=== PATIENT | female | born 1995 | race Caucasian/White ===

== ENCOUNTER 2021-12-21 06:11 | Emergency (ER) | payer BC ==
[2021-12-21] MEDS ORDERED: Ondansetron 4 MG/2 ML SDV IVPUSH ONE (06:35)
[2021-12-21] MEDS ORDERED: Morphine 4 MG/ML VIAL IVPUSH ONE (06:35)
[2021-12-21] MEDS ORDERED: Sodium Chloride 0.9% 1,000 ML IV SCH (06:45)
[2021-12-21 07:07] LABS: BLOOD UREA NITROGEN,BUN 16 mg/dL (7.0-18.0); CARBON DIOXIDE,CO2 26.8 mmol/L (21.0-32.0); CHLORIDE,CL 103 mmol/L (98-107); ESTIMATED GFR > 60.0 ml/min; GLUCOSE RANDOM 80 mg/dL (74-106); LIPASE 109 U/L (73-393); POTASSIUM,K 3.8 mmol/L (3.5-5.1); SODIUM,NA 141 mmol/L (136-145)
== END 2021-12-21 09:13 | disposition home or self-care (01) ==
LOC: MW.ED 06:11
DX: K80.20 Calculus of gallbladder without cholecystitis without obstruction (principal)
CPT/HCPCS: 36415; 71045; 76705; 80053; 81003; 83690; 84703; 85025; 85379; 96374; 96375; 99284; J2270; J2405; J7030

== ENCOUNTER 2021-12-31 03:25 | Inpatient (IN) | payer BC ==
[2021-12-31] MEDS ORDERED: Ondansetron 4 MG/2 ML SDV IVPUSH ONE (03:40)
[2021-12-31] MEDS ORDERED: Sodium Chloride 0.9% 1,000 ML IV STA (03:43)
[2021-12-31] MEDS ORDERED: Morphine 4 MG/ML VIAL IVPUSH ONE (03:43)
[2021-12-31 04:17] LABS: BLOOD UREA NITROGEN,BUN 17 mg/dL (7.0-18.0); CARBON DIOXIDE,CO2 27.8 mmol/L (21.0-32.0); CHLORIDE,CL 103 mmol/L (98-107); GLUCOSE RANDOM 97 mg/dL (74-106); LIPASE 106 U/L (73-393); POTASSIUM,K 3.8 mmol/L (3.5-5.1); SODIUM,NA 137 mmol/L (136-145)
[2021-12-31] MEDS ORDERED: Ondansetron 4 MG/2 ML SDV IVPUSH PRN (05:08)
[2021-12-31] MEDS ORDERED: Morphine 2 MG/ML SYRINGE IVPUSH PRN (05:09)
[2021-12-31] MEDS ORDERED: Lactated Ringers 1,000 ML IV STA (05:12)
[2021-12-31] MEDS: Acetaminophen 325 MG Tab PO PRN ×2 (18:22→21:08)
[2021-12-31] MEDS ORDERED: Lactated Ringers 1,000 ML IV SCH (20:15)
[2022-01-01] MEDS ORDERED: cefOXitin 2 GM in Premix Bag 1 BAG IV ONE (10:00)
[2022-01-01] MEDS ORDERED: Ondansetron 4 MG/2 ML SDV IVPUSH PRN ×3 (10:29→15:21)
[2022-01-01] MEDS ORDERED: Albuterol 0.083% 2.5 MG/3 ML Neb Soln NEB PRN (10:29)
[2022-01-01] MEDS ORDERED: Naloxone 0.4 MG/ML SDV IVPUSH PRN ×2 (10:29→15:21)
[2022-01-01] MEDS ORDERED: HYDROmorphone 1 MG/ML Syringe IVPUSH PRN (10:29)
[2022-01-01] MEDS ORDERED: fentaNYL 100 MCG/2 ML SDV IVPUSH PRN (10:29)
[2022-01-01] MEDS ORDERED: Metoclopramide 10 MG/2 ML SDV IVPUSH PRN (10:29)
[2022-01-01] MEDS ORDERED: fentaNYL 250 MCG/5 ML SDV ONE ×2 (11:35→12:51)
[2022-01-01] MEDS ORDERED: Propofol 200 MG/20 ML SDV ONE (11:35)
[2022-01-01] MEDS ORDERED: Bupivacaine 0.5% 30 ML SDV ONE ×2 (11:47→13:52)
[2022-01-01] MEDS ORDERED: ceFAZolin 1 GM Vial ONE (11:47)
[2022-01-01] MEDS ORDERED: Famotidine 20 MG/2 ML SDV ONE (13:00)
[2022-01-01] MEDS ORDERED: Rocuronium Bromide 50 MG/5 ML Syringe ONE ×2 (13:56→18:11)
[2022-01-01] MEDS ORDERED: Bupivacaine 0.5% 10 ML SDV ONE (14:10)
[2022-01-01] MEDS ORDERED: Albumin 5% 250 ML ONE ×2 (14:12→15:24)
[2022-01-01] MEDS ORDERED: Calcium Chloride 10% 1 GM/10 ML Syringe ONE ×2 (14:12→15:13)
[2022-01-01] MEDS ORDERED: Phenylephrine 1% 10 MG/ML SDV ONE ×3 (15:13→18:11)
[2022-01-01] MEDS ORDERED: HYDROmorphone/Normal Saline 10 MG/50 ML PCA IV PRN (15:18)
[2022-01-01] MEDS ORDERED: diphenhydrAMINE 50 MG/ML SDV IVPUSH PRN (15:21)
[2022-01-01] MEDS ORDERED: diphenhydrAMINE 25 MG Cap PO PRN (15:21)
[2022-01-01] MEDS ORDERED: Vasopressin 20 Units/1 ML MDV ONE ×3 (15:25→18:11)
[2022-01-01] MEDS ORDERED: Lactated Ringers 1,000 ML IV SCH (15:30)
[2022-01-01] MEDS ORDERED: cefOXitin 1 GM in Premix Bag 1 BAG IV SCH (15:30)
[2022-01-01 16:29] LABS: BLOOD UREA NITROGEN,BUN 9 mg/dL (7.0-18.0); CARBON DIOXIDE,CO2 13.7 mmol/L (21.0-32.0); CHLORIDE,CL 111 mmol/L (98-107); GLUCOSE RANDOM 281 mg/dL (74-106); POTASSIUM,K 4.2 mmol/L (3.5-5.1); SODIUM,NA 139 mmol/L (136-145)
[2022-01-01] MEDS ORDERED: Vasopressin 20 Units/1 ML MDV IV ONE (16:45)
[2022-01-01] MEDS ORDERED: Piperacillin/Tazobactam 4.5 GM in Sodium Chloride 0.9% 100 ML IV ONE (17:08)
[2022-01-01] MEDS ORDERED: Calcium Gluconate 10% 1 GM/10 ML SDV ONE (17:43)
[2022-01-01] MEDS ORDERED: Sugammadex Sodium 200 MG/2 ML VIAL ONE (18:11)
[2022-01-01] MEDS ORDERED: ePHEDrine 50 MG/ML SDV ONE (18:11)
[2022-01-01] MEDS ORDERED: Ondansetron 4 MG/2 ML SDV ONE (18:11)
== END 2022-01-01 18:29 | DRG 263 ==
LOC: MW.ED 03:25 → MW.MS 05:07 → OBSVTOIN 15:16
PROVIDERS: ADMIT Surgery; ATTEND Surgery
PROC: 0FT40ZZ Resection of Gallbladder, Open Approach (ICD-10-PCS; principal; 2022-01-01)
PROC: 0FJ44ZZ Inspection of Gallbladder, Percutaneous Endoscopic Approach (ICD-10-PCS; 2022-01-01)
PROC: 30233N1 Transfusion of Nonautologous Red Blood Cells into Peripheral Vein, Percutaneous Approach (ICD-10-PCS; 2022-01-01)
PROC: 30233K1 Transfusion of Nonautologous Frozen Plasma into Peripheral Vein, Percutaneous Approach (ICD-10-PCS; 2022-01-01)
PROC: 02HV33Z Insertion of Infusion Device into Superior Vena Cava, Percutaneous Approach (ICD-10-PCS; 2022-01-01)
DX: K80.10 Calculus of gallbladder with chronic cholecystitis without obstruction (principal); I97.418 Intraoperative hemorrhage and hematoma of a circulatory system organ or structure complicating other circulatory system procedure; Z20.822 Contact with and (suspected) exposure to COVID-19; K21.9 Gastro-esophageal reflux disease without esophagitis; F41.9 Anxiety disorder, unspecified; F32.A Depression, unspecified; F43.10 Post-traumatic stress disorder, unspecified
CPT/HCPCS: 36415; 36430; 71045; 71045-26; 80053; 81003; 83605; 83690; 84484; 84703; 85014; 85018; 85025; 85027; 85610; 85730; 86850; 86900; 86901; 86920; 86921; 86922; 93005; 96374; 96375; 96376; 99285-25; A9270-GY; G0378; J0610; J0690; J2270; J2370; J2405; J2543; J2704; J3010; J3490; J7030; J7120; P9016; P9017; P9045; U0002

== ENCOUNTER 2022-01-11 00:47 | Emergency (ER) | payer BC | END 2022-01-11 01:36 | disposition home or self-care (01) | LOC: MW.ED 00:47 | DX: I80.8 Phlebitis and thrombophlebitis of other sites (principal); K21.9 Gastro-esophageal reflux disease without esophagitis; E66.9 Obesity, unspecified; Z68.41 Body mass index [BMI] 40.0-44.9, adult | CPT/HCPCS: 99282; 99283 ==

== ENCOUNTER 2022-01-19 21:47 | Emergency (ER) | payer BC ==
[2022-01-19] MEDS ORDERED: Ondansetron 4 MG/2 ML SDV IVPUSH ONE (22:34)
[2022-01-19] MEDS ORDERED: Sodium Chloride 0.9% 1,000 ML IV ONE (22:34)
[2022-01-19] MEDS ORDERED: Morphine 4 MG/ML VIAL IVPUSH ONE (22:34)
[2022-01-19] MEDS ORDERED: Sodium Chloride 0.9% 2.5 ML Syringe FLUSH PRN (22:34)
[2022-01-19] MEDS ORDERED: Sodium Chloride 0.9% 10 ML Syringe FLUSH PRN (22:34)
[2022-01-19 23:58] LABS: BLOOD UREA NITROGEN,BUN 12 mg/dL (7.0-18.0); CARBON DIOXIDE,CO2 28.6 mmol/L (21.0-32.0); CHLORIDE,CL 101 mmol/L (98-107); GLUCOSE RANDOM 81 mg/dL (74-106); LIPASE 634 U/L (73-393); POTASSIUM,K 3.7 mmol/L (3.5-5.1); SODIUM,NA 139 mmol/L (136-145)
[2022-01-20] MEDS ORDERED: Iopamidol 755 MG/ML 500 ML Multipack Bottle IVPUSH STA (02:54)
[2022-01-20] MEDS ORDERED: Piperacillin/Tazobactam 3.375 GM in Sodium Chloride 0.9% 50 ML IV ONE ×2 (03:25→09:39)
[2022-01-20] MEDS ORDERED: Morphine 4 MG/ML VIAL IVPUSH STA (05:58)
[2022-01-20] MEDS ORDERED: Morphine 4 MG/ML VIAL IVPUSH ONE (09:42)
== END 2022-01-20 10:10 | disposition other institution (70) ==
LOC: MW.ED 21:47
DX: L02.211 Cutaneous abscess of abdominal wall (principal); E66.9 Obesity, unspecified; Z68.39 Body mass index [BMI] 39.0-39.9, adult; Z79.899 Other long term (current) drug therapy; Z20.822 Contact with and (suspected) exposure to COVID-19
CPT/HCPCS: 36415; 71275; 74177; 80053; 81003; 81025; 83605; 83690; 84484; 85025; 85379; 85610; 86850; 86900; 86901; 87040; 87635; 93005; 96365; 96366; 96375; 96376; 99285; J2270; J2405; J2543; J3490; J7030; Q9967; U0002

== ENCOUNTER 2022-01-23 07:20 | Emergency (ER) | payer BC ==
[2022-01-23] MEDS ORDERED: Sodium Chloride 0.9% 10 ML Syringe FLUSH PRN (07:28)
[2022-01-23] MEDS ORDERED: Sodium Chloride 0.9% 2.5 ML Syringe FLUSH PRN (07:28)
[2022-01-23] MEDS ORDERED: Lactated Ringers 1,000 ML IV STA (07:29)
[2022-01-23] MEDS ORDERED: Morphine 4 MG/ML VIAL IVPUSH ONE ×2 (07:30→11:39)
[2022-01-23] MEDS ORDERED: Ondansetron 4 MG/2 ML SDV IVPUSH ONE (07:30)
[2022-01-23] MEDS ORDERED: Piperacillin/Tazobactam 4.5 GM in Sodium Chloride 0.9% 100 ML IV ONE (07:40)
[2022-01-23 08:30] LABS: BLOOD UREA NITROGEN,BUN 9 mg/dL (7.0-18.0); CARBON DIOXIDE,CO2 25.4 mmol/L (21.0-32.0); CHLORIDE,CL 100 mmol/L (98-107); GLUCOSE RANDOM 89 mg/dL (74-106); LIPASE 224 U/L (73-393); POTASSIUM,K 4.3 mmol/L (3.5-5.1); SODIUM,NA 135 mmol/L (136-145)
[2022-01-23] MEDS ORDERED: Iopamidol 755 MG/ML 500 ML Multipack Bottle IVPUSH STA (08:44)
== END 2022-01-23 12:00 ==
LOC: MW.ED 07:20
DX: K65.1 Peritoneal abscess (principal); Z20.822 Contact with and (suspected) exposure to COVID-19
CPT/HCPCS: 36415; 74177; 80053; 83605; 83690; 85025; 87040; 87635; 96365; 96375; 96376; 99285; J2270; J2405; J2543; J3490; J7120; Q9967; U0002

== ENCOUNTER 2022-02-01 22:57 | Emergency (ER) | payer BC ==
[2022-02-02] MEDS ORDERED: Morphine 4 MG/ML VIAL IVPUSH ONE (00:03)
[2022-02-02 00:33] LABS: BLOOD UREA NITROGEN,BUN 10 mg/dL (7.0-18.0); CARBON DIOXIDE,CO2 27.7 mmol/L (21.0-32.0); CHLORIDE,CL 99 mmol/L (98-107); GLUCOSE RANDOM 99 mg/dL (74-106); POTASSIUM,K 3.6 mmol/L (3.5-5.1); SODIUM,NA 137 mmol/L (136-145)
[2022-02-02] MEDS ORDERED: Piperacillin/Tazobactam 3.375 GM in Sodium Chloride 0.9% 50 ML IV ONE (00:41)
[2022-02-02] MEDS ORDERED: Sodium Chloride 0.9% 1,000 ML IV STA (00:41)
[2022-02-02] MEDS ORDERED: Iopamidol 755 MG/ML 500 ML Multipack Bottle IVPUSH STA (01:51)
== END 2022-02-02 03:03 | disposition home or self-care (01) ==
LOC: MW.ED 22:57
DX: T85.79XA Infection and inflammatory reaction due to other internal prosthetic devices, implants and grafts, initial encounter (principal); L02.211 Cutaneous abscess of abdominal wall; E66.9 Obesity, unspecified; Z68.38 Body mass index [BMI] 38.0-38.9, adult; Z90.49 Acquired absence of other specified parts of digestive tract; Z79.899 Other long term (current) drug therapy
CPT/HCPCS: 36415; 74177; 80053; 83605; 85025; 85610; 87040; 96365; 96375; 99284; J2270; J2543; J7030; Q9967

== ENCOUNTER 2022-07-14 03:39 | Emergency (ER) | payer BC ==
[2022-07-14] MEDS ORDERED: Morphine 4 MG/ML Syringe IVPUSH ONE (04:20)
[2022-07-14] MEDS ORDERED: Sodium Chloride 0.9% 1,000 ML IV ONE (04:22)
[2022-07-14] MEDS ORDERED: Ondansetron 4 MG/2 ML SDV IVPUSH ONE (04:22)
[2022-08-22 14:14] LABS: BLOOD UREA NITROGEN,BUN 11 mg/dL (7.0-18.0); CARBON DIOXIDE,CO2 29.4 mmol/L (21.0-32.0); CHLORIDE,CL 101 mmol/L (98-107); ESTIMATED GFR 123 mL/min (>60); GLUCOSE RANDOM 91 mg/dL (74-106); POTASSIUM,K 3.8 mmol/L (3.5-5.1); SODIUM,NA 139 mmol/L (136-145)
[2022-08-22 14:15] LABS: LIPASE 83 U/L (73-393)
== END 2022-07-14 06:25 | disposition home or self-care (01) ==
LOC: MW.ED 03:39
DX: R19.7 Diarrhea, unspecified (principal)
CPT/HCPCS: 36415; 80053; 83690; 84703; 85025; 96361; 96374; 96375; 99284; J2270; J2405; J7030; 99283

== ENCOUNTER 2022-09-06 22:29 | Emergency (ER) | payer BC ==
[2022-09-07] MEDS ORDERED: Morphine 4 MG/ML Syringe IVPUSH ONE (00:16)
[2022-09-07] MEDS ORDERED: Sodium Chloride 0.9% 1,000 ML IV ONE (00:16)
[2022-09-07] MEDS ORDERED: Ondansetron 4 MG/2 ML SDV IVPUSH ONE (00:16)
[2022-09-07 01:06] LABS: CARBON DIOXIDE,CO2 27.8 mmol/L (21.0-32.0); POTASSIUM,K 3.6 mmol/L (3.5-5.1)
[2022-09-07] MEDS ORDERED: Iopamidol 755 MG/ML 500 ML Multipack Bottle IVPUSH STA (01:50)
[2022-09-07] MEDS ORDERED: HYDROmorphone 1 MG/ML Syringe IVPUSH ONE ×3 (02:06→09:04)
[2022-09-07] MEDS ORDERED: Piperacillin/Tazobactam 4.5 GM in Sodium Chloride 0.9% 100 ML IV ONE (02:14)
== END 2022-09-07 09:15 ==
LOC: MW.ED 22:29
DX: K37 Unspecified appendicitis (principal); E66.9 Obesity, unspecified; Z68.41 Body mass index [BMI] 40.0-44.9, adult; Z90.49 Acquired absence of other specified parts of digestive tract; Z20.822 Contact with and (suspected) exposure to COVID-19
CPT/HCPCS: 36415; 74177; 80053; 81003; 83690; 83735; 84703; 85025; 87635; 96361; 96365; 96375; 96376; 99285; J1170; J2270; J2405; J2543; J7030; Q9967; U0002

== ENCOUNTER 2023-03-01 14:07 | Emergency (ER) | payer BC ==
[2023-03-01] MEDS ORDERED: Ondansetron 4 MG/2 ML SDV IVPUSH STA (15:00)
[2023-03-01] MEDS ORDERED: Sodium Chloride 0.9% 10 ML Syringe FLUSH PRN (15:00)
[2023-03-01] MEDS ORDERED: Sodium Chloride 0.9% 1,000 ML IV STA (15:00)
[2023-03-01] MEDS ORDERED: Sodium Chloride 0.9% 2.5 ML Syringe FLUSH PRN (15:00)
[2023-03-01 15:48] LABS: BASOPHILS PERCENT AUTO 0.3 % (0.0-1.5); EOSINOPHILS ABSOLUTE AUTO 0.2 K/uL (0.0-0.7); EOSINOPHILS PERCENT AUTO 1.6 % (0.0-7.0); HEMATOCRIT 39.9 % (36.0-46.0); HEMOGLOBIN 13.4 g/dL (12.0-16.0); LYMPHOCYTES ABSOLUTE AUTO 2.9 K/uL (0.6-2.4); LYMPHOCYTES PERCENT AUTO 26.3 % (16.0-40.0); MEAN CORPUSCULAR HEMOGLOBIN 28.9 pg (27.0-32.0); MEAN CORPUSCULAR HGB CONC 33.6 g/dL (31.0-37.0); MONOCYTES ABSOLUTE AUTO 0.5 K/uL (0.0-0.8); MONOCYTES PERCENT AUTO 4.7 % (0.0-15.0); NEUTROPHILS ABSOLUTE AUTO 7.5 K/uL (1.4-5.7); NEUTROPHILS PERCENT AUTO 67.1 % (48.0-80.0); NRBC ABSOLUTE 0 K/uL; PLATELET COUNT,PLT 342 K/uL (150-400); RED BLOOD CELL COUNT 4.64 M/uL (4.30-5.90); WHITE BLOOD CELL COUNT,WBC 11.13 K/uL (4.0-11.0)
[2023-03-01 16:14] LABS: APPEARANCE,URINE CLEAR; BILIRUBIN,URINE NEGATIVE (NEGATIVE); COLOR,URINE YELLOW; GLUCOSE,URINE NEGATIVE (NEGATIVE); KETONES,URINE NEGATIVE (NEGATIVE); LEUKOCYTE ESTERASE,URINE NEGATIVE (NEGATIVE); NITRITE,URINE NEGATIVE (NEGATIVE); OCCULT BLOOD,URINE NEGATIVE (NEGATIVE); PROTEIN,URINE NEGATIVE (NEGATIVE); UROBILINOGEN,URINE 0.2 EU/dL (<2.0)
[2023-03-01 16:17] LABS: A/G RATIO 0.9 (0.9-1.6); ALBUMIN 3.8 g/dL (3.4-5.0); BILIRUBIN TOTAL 0.2 mg/dL (0.2-1.0); CARBON DIOXIDE,CO2 30.2 mmol/L (21.0-32.0); CREATININE 0.7 mg/dL (0.6-1.0); EST CRCL DRUG DOSING (CG) 101.63 mL/min; POTASSIUM,K 3.7 mmol/L (3.5-5.1); PROTEIN TOTAL,TP 7.9 g/dL (6.4-8.2)
== END 2023-03-01 18:30 | disposition home or self-care (01) ==
LOC: MW.ED 14:07
DX: R10.84 Generalized abdominal pain (principal); R10.11 Right upper quadrant pain; E66.9 Obesity, unspecified; Z68.41 Body mass index [BMI] 40.0-44.9, adult; Z90.49 Acquired absence of other specified parts of digestive tract
CPT/HCPCS: 36415; 74018; 80053; 81003; 81025; 83690; 85025; 96361; 96374; 99284; J2405; J3490; J7030

== ENCOUNTER 2024-08-14 19:34 | Emergency (ER) | payer BC, OTHER ==
[2024-08-14 21:00] LABS: BASOPHILS ABSOLUTE AUTO 0.07 K/uL (0.00-0.20); BASOPHILS PERCENT AUTO 0.6 % (0.0-1.0); EOSINOPHILS ABSOLUTE AUTO 0.21 K/uL (0.00-0.45); EOSINOPHILS PERCENT AUTO 1.7 % (0.0-6.0); HEMATOCRIT 38.7 % (37.0-47.0); HEMOGLOBIN 12.8 g/dL (12.0-16.0); IMMATURE GRAN ABSOLUTE AUTO 0.05 K/uL (0.00-0.05); IMMATURE GRAN PERCENT AUTO 0.4 % (0.0-0.4); LYMPHOCYTES ABSOLUTE AUTO 3.56 K/uL (1.00-4.80); LYMPHOCYTES PERCENT AUTO 29.1 % (24.0-44.0); MEAN CORPUSCULAR HEMOGLOBIN 28.4 pg (28.0-32.0); MEAN CORPUSCULAR HGB CONC 33.1 g/dL (32.0-36.0); MONOCYTES ABSOLUTE AUTO 0.59 K/uL (0.00-0.80); MONOCYTES PERCENT AUTO 4.8 % (0.0-8.0); NEUTROPHILS ABSOLUTE AUTO 7.75 K/uL (1.80-7.70); NEUTROPHILS PERCENT AUTO 63.4 % (41.0-71.0); PLATELET COUNT,PLT 359 K/uL (150-400); WHITE BLOOD CELL COUNT,WBC 12.23 K/uL (3.9-11.3)
[2024-08-14 21:27] LABS: A/G RATIO 0.9 (0.9-1.6); ALBUMIN 3.8 g/dL (3.4-5.0); BILIRUBIN TOTAL 0.2 mg/dL (0.2-1.0); CALCIUM 9.2 mg/dL (8.5-10.1); CARBON DIOXIDE,CO2 28.1 mmol/L (21.0-32.0); CREATININE 1.2 mg/dL (0.6-1.0); EST CRCL DRUG DOSING (CG) 58.25 mL/min; POTASSIUM,K 3.9 mmol/L (3.5-5.1)
== END 2024-08-14 22:02 | disposition home or self-care (01) ==
LOC: MW.ED 19:34
DX: R07.9 Chest pain, unspecified (principal); R58 Hemorrhage, not elsewhere classified; Z90.49 Acquired absence of other specified parts of digestive tract; Z79.899 Other long term (current) drug therapy; Z75.8 Other problems related to medical facilities and other health care
CPT/HCPCS: 36415; 80053; 84484; 84703; 85025; 99285